=== PATIENT | female | born 1975 | race Caucasian/White ===

== ENCOUNTER 2021-01-16 16:06 | Outpatient (CLI) | payer BC, OTHER, SELFPAY ==
--- NOTE | ~2021-01-16 | US_ITS ---
EXAMINATION: US venous doppler LE RT DATE: 01/16/2021 16:52 INDICATION: Right lower limb pain. TECHNIQUE: Grayscale ultrasound images without and with compression and Doppler ultrasound images of the right lower extremity veins were obtained. COMPARISON: None. FINDINGS: The visualized portions of right common femoral vein, profunda (deep) femoral vein, femoral vein, pop liteal vein, peroneal veins, posterior tibial veins, and greater saphenous vein outflow are patent. T here is a thrombosed superficial vein in anterior right thigh. IMPRESSION: 1. No deep venous thrombosis. 2. Thrombosed superficial vein in anterior right thigh. Reviewed, dictated and finalized at location A.
== END 2021-01-16 16:07 | disposition home or self-care (01) ==
LOC: ANHIMG 16:14
PROVIDERS: PCP Family Medicine; Visit Provider Family Medicine
DX: I82.811 Embolism and thrombosis of superficial veins of right lower extremity (principal)
CPT/HCPCS: 93971

== ENCOUNTER 2022-06-02 10:04 | Outpatient (CLI) | payer BC, OTHER, SELFPAY ==
--- NOTE | 2022-06-02 11:00 | NEURO_ITS ---
Impression: # Complains of numbness and pain. # Subtle evolving Carpal Tunnel Syndrome. # Normal needle/EMG exam. Motor Nerve Conduction Upper Extremities Median Nerve Conduction Velocity (m/sec) Terminal Latency (msec) Response Voltage(mV) Elbow-Wrist Wrist Elbow Wrist Right 57 3.5 3 4 Left 58 3.8 1 2 Ulnar Nerve Conduction Velocity (m/sec) Terminal Latency (msec) Response Voltage(mV) Above Elbow Below Elbow Wrist Above Elbow Below Elbow Wrist Right 58 2.5 5 7 Left 58 2.5 5 6 F-Wave Latency Median (ms) Ulnar (ms) Right 27.3 26.3 Left 28.1 27.6 Sensory Nerve Conduction Upper Extremities Median Nerve Stimulation Terminal Latency (msec) Wrist/Digit Response Voltage (uV) Wrist Right 3.2/3.2 42/50 Left 3.5/3.7 28/61 Ulnar Nerve Stimulation Terminal Latency (msec) Wrist/Digit Response Voltage (uV) Wrist Right 2.4 25 Left 2.5 26 Radial Nerve Terminal Latency (msec) Response Voltage(mV) Right 2.0 19 Left 2.1 10 Left Right Muscles Examined Fibrillation Fasciculation Scarcity Voltage Duration Left Right Left Right Left Right Left Right Left Right Deltoid Biceps X X Brachioradialis Triceps X X Pronator Teres X X Ext Indicis X X Ext Digitorum X X Abd Poll Brev X X 1st Dorsal Interosseus Paraspinals MTDD
== END 2022-06-02 10:05 | disposition home or self-care (01) ==
LOC: ANHNEURO 10:05
PROVIDERS: PCP Family Medicine; Visit Provider Nurse Practitioner Family
DX: M25.532 Pain in left wrist (principal); M79.641 Pain in right hand; M79.642 Pain in left hand; G56.00 Carpal tunnel syndrome, unspecified upper limb
CPT/HCPCS: 95886; 95911